=== PATIENT | female | born 1955 | race Caucasian/White ===

== ENCOUNTER 2016-11-20 09:58 | Outpatient (CLI) | payer BC ==
--- NOTE | 2016-11-20 11:27 | DIAGNOSTIC IMAGING REPORT ---
PROCEDURE: XR CHEST 2 VIEW INDICATION: COUGH TECHNIQUE: Two views COMPARISON: None. FINDINGS: The cardiomediastinal contour is normal. No central venous congestion. The pulmonary arteries are prominent. The lungs mildly hyperinflated but clear without focal consolidation, pleural effusion or pneumothorax. There is mild biapical pleural plaquing. Smooth deformity of the right lateral sixth rib arc suggestive of remote fracture and healing. The osseous structures are intact. IMPRESSION: 1. No acute disease. 2. Findings of mild COPD/emphysema.
== END 2016-11-20 23:00 ==
LOC: XR SRH 09:58
DX: J44.9 Chronic obstructive pulmonary disease, unspecified (principal)

== ENCOUNTER 2016-12-18 09:14 | Outpatient (CLI) | payer BC | END 2016-12-18 23:00 | LOC: RT SRH 09:14 | DX: J44.9 Chronic obstructive pulmonary disease, unspecified (principal) ==